=== PATIENT | female | born 1990 | race Caucasian/White ===

== ENCOUNTER 2018-10-14 13:17 | Emergency (ER) | payer OTHER ==
[2018-10-14] MEDS ORDERED: Albuterol/Ipratropium 3.0-0.5 MG/3 ML Neb Soln NEB ONE (14:41)
--- NOTE | 2018-10-14 14:41 | EDM.PDOC ---
ED HPI GENERAL MEDICAL PROBLEM - General Chief Complaint: Respiratory Problem Stated Complaint: COUGH-RESPIRATORY ISSUES Time Seen by Provider: 10/14/18 13:20 Source of Information: Reports: Patient History Limitations: Reports: No Limitations - History of Present Illness INITIAL COMMENTS - FREE TEXT/NARRATIVE: 28 yo F comes in today with a cough that started 2 days ago. She was seen in clinic and started on Augmentin. She states is started when she stayed at a friend's house that has a cat, which she is allergic to. She had a runny nose with clear rhinorrhea that then turned into sinus congestion and now chest congestion. She states her cough is non productive, but she does feel there is some congestion stuck in her lungs. She has had bronchitis in the past and feels that these were the same symptoms. She also c/o of some internal "ear drainage" that is chronic for her, runny nose, "nasty taste" in her mouth, orthopnea, "tight" chest, and insomnia. She denies F/C, vomiting, diarrhea, chest pain or other symptoms at this time. She does have a humidifier at home which has helped along with hot showers. She did not have her flu shot. No known sick contacts. She is not a smoker. - Related Data Allergies Allergy/AdvReac Type Severity Reaction Status Date / Time acetaminophen [From [place]] Allergy Rash Verified 10/14/18 13:27 hydrocodone [From [place]] Allergy Rash Verified 10/14/18 13:27 oral steroids. Allergy Other Uncoded 10/14/18 13:27 Home Meds: Home Meds Albuterol Sulfate [Proair Hfa] 8.5 gm IH BID PRN #1 [id number].[email or web address] 10/14/18 [Rx] Amoxicillin/Clavulanate K [Augmentin 875-125 MG] 1 tab PO BID 10/14/18 [History] Depo Shot. 1 injection INJECT ASDIRECTED 10/14/18 [History] Topiramate [Topamax] 100 mg PO BID 10/14/18 [History] Past Medical History Musculoskeletal History: Reports: Other (See Below) Other Musculoskeletal History: arthritis in back Neurological History: Reports: Other (See Below) Other Neuro History: pseudotumor cerebri, papilledema - Past Surgical History HEENT Surgical History: Reports: Oral Surgery Social & Family History - Tobacco Use Smoking Status *Q: Never Smoker Second Hand Smoke Exposure: No - Caffeine Use Caffeine Use: Reports: Coffee - Recreational Drug Use Recreational Drug Use: No ED ROS GENERAL - Review of Systems Review Of Systems: ROS reveals no pertinent complaints other than HPI. ED EXAM, GENERAL - Physical Exam Exam: See Below Exam Limited By: No Limitations General Appearance: Alert Eye Exam: Bilateral Eye: EOMI, Normal Inspection, PERRL Ears: Normal External Exam, Normal Canal, Hearing Grossly Normal, Normal TMs Ear Exam: Bilateral Ear: Auricle Normal, Canal Normal, TM normal Nose: Normal Mucosa, Clear Rhinorrhea. No: Nasal Tenderness Throat/Mouth: Normal Inspection, Normal Lips, Normal Teeth, Normal Gums, Normal Oropharynx, Normal Voice, No Airway Compromise Head: Atraumatic, Normocephalic Neck: Normal Inspection, Supple, Non-Tender, Full Range of Motion Respiratory/Chest: No Respiratory Distress, Lungs Clear, Normal Breath Sounds, No Accessory Muscle Use, Chest Non-Tender Cardiovascular: Normal Peripheral Pulses, Regular Rate, Rhythm, No Edema, No Gallop, No JVD, No Murmur, No Rub GI/Abdominal: Normal Bowel Sounds, Soft, Non-Tender, No Organomegaly, No Distention, No Abnormal Bruit, No Mass Back Exam: Normal Inspection Extremities: Normal Inspection, Normal Range of Motion, Non-Tender, Normal Capillary Refill, No Pedal Edema Skin Exam: Warm, Dry, Intact, Normal Color, No Rash Course - Vital Signs Last Recorded V/S: Last Vital Signs Temp 98 F 10/14/18 13:25 Pulse 90 10/14/18 13:25 Resp 16 10/14/18 13:25 BP 125/77 10/14/18 13:25 Pulse Ox 99 10/14/18 13:25 - Orders/Labs/Meds Orders: Active Orders 24 hr Category Date Time Status EKG Documentation Completion [RC] ASDIRECTED Care 10/14/18 14:38 Active RT Aerosol Therapy [RC] ASDIRECTED Care 10/14/18 14:41 Active EKG 12 Lead [EK] Stat Ther 10/14/18 14:38 Ordered Labs: Laboratory Tests 10/14/18 10/14/18 Range/Units 14:59 14:59 WBC 8.58 (3.98-10.04) K/mm3 RBC 5.07 (3.98-5.22) M/mm3 Hgb 13.6 (11.2-15.7) gm/L Hct 42.1 (34.1-44.9) % MCV 83.0 (79.4-94.8) fl MCH 26.8 (25.6-32.2) pg MCHC 32.3 (32.2-35.5) g/dl RDW Std Deviation 41.8 (36.4-46.3) fL Plt Count 244 (182-369) K/mm3 MPV 10.0 (9.4-12.3) fl Neut % (Auto) 67.0 (34.0-71.1) % Lymph % (Auto) 22.1 (19.3-51.7) % [place] % (Auto) 6.9 (4.7-12.5) % Eos % (Auto) 3.4 (0.7-5.8) Baso % (Auto) 0.5 (0.1-1.2) % Neut # (Auto) 5.75 (1.56-6.13) K/mm3 Lymph # (Auto) 1.90 (1.18-3.74) K/mm3 [place] # (Auto) 0.59 H (0.24-0.36) K/mm3 Eos # (Auto) 0.29 (0.04-0.36) K/mm3 Baso # (Auto) 0.04 (0.01-0.08) K/mm3 Sodium 144 (136-145) mEq/L Potassium 3.3 L (3.5-5.1) mEq/L Chloride 111 H (98-107) mEq/L Carbon Dioxide 20 L (21-32) mEq/L Anion Gap 16.3 H (5-15) BUN 9 (7-18) mg/dL Creatinine 0.7 (0.55-1.02) mg/dL Est Cr Clr Drug Dosing 105.17 mL/min Estimated GFR (MDRD) > 60 (>60) mL/min BUN/Creatinine Ratio 12.9 L (14-18) Glucose 92 (74-106) mg/dL Calcium 8.9 (8.5-10.1) mg/dL Total Bilirubin 0.2 (0.2-1.0) mg/dL AST 12 L (15-37) U/L ALT 27 (14-59) U/L Alkaline Phosphatase 93 (46-116) U/L C-Reactive Protein 0.3 (<1.0) mg/dL Total Protein 7.6 (6.4-8.2) g/dl Albumin 3.9 (3.4-5.0) g/dl Globulin 3.7 gm/dL Albumin/Globulin Ratio 1.1 (1-2) Meds: Medications Discontinued Medications Generic Name Dose Route Start Last Admin Trade Name Freq PRN Reason Stop Dose Admin Albuterol/Ipratropium 3 ml 10/14/18 14:41 10/14/18 15:15 Duoneb 3.0-0.5 Mg/3 Ml NEB 10/14/18 14:42 3 ml ONETIME ONE Administration Sodium Chloride 1,000 mls @ 999 mls/hr 10/14/18 16:00 Normal Saline IV ASDIRECTED JAZZ Potassium Chloride 10 meq/ 100 mls @ 100 mls/hr 10/14/18 15:56 Premix IV 10/14/18 16:55 ONETIME ONE Potassium Chloride 40 meq 10/14/18 16:04 10/14/18 16:16 Klor-Con M20 PO 10/14/18 16:05 40 meq ONETIME ONE Administration - Re-Assessments/Exams Free Text/Narrative Re-Assessment/Exam: 10/14/18 15:58 I ordered CBC, CMP, CRP, Influenza, CXR, EKG EKG reviewed by myself and Dr. Dillon- WNL. CBC, CRP WNL. CMP shows low potassium at 3.3- will replace. AGap elevated 16.3 will start IVF NS. Influenza negative. CXR reviewed by myself and Dr. Dillon and shows Bronchitis. Departure - Departure Time of Disposition: 16:01 Disposition: Home, Self-Care 01 Condition: Good Clinical Impression: Bronchitis - Discharge Information *PRESCRIPTION DRUG MONITORING PROGRAM REVIEWED*: Not Applicable *COPY OF PRESCRIPTION DRUG MONITORING REPORT IN PATIENT KODY: Not Applicable Prescriptions: Albuterol Sulfate [Proair Hfa] 8.5 gm IH BID PRN #1 hfa.aer.ad PRN Reason: Wheezing Instructions: Acute Bronchitis, Adult, [id number] Referrals: Pau Mcmullen PA-C [Primary Care Provider] - Forms: ED Department Discharge Additional Instructions: You were seen in the ED today for Bronchitis. CXR did show Bronchitis at this time. The rest of your workup was benign, but did show some dehydration and low potassium, therefore you were given potassium while here. Recommend fluids such as water, gatorade, pedialyte. It is recommended you continue the Augmentin you were started on at clinic and try [id number] decongestants such as Sudafed for congestion/sinus. Will send home with Albuterol inhaler, use as needed as rescue inhaler. Please follow up with primary care doctor. Please return to ED if new or worsening symptoms. - My Orders Last 24 Hours: My Active Orders 10/14/18 14:38 EKG Documentation Completion [RC] ASDIRECTED EKG 12 Lead [EK] Stat 10/14/18 14:41 RT Aerosol Therapy [RC] ASDIRECTED - Assessment/Plan Last 24 Hours: My Active Orders 10/14/18 14:38 EKG Documentation Completion [RC] ASDIRECTED EKG 12 Lead [EK] Stat 10/14/18 14:41 RT Aerosol Therapy [RC] ASDIRECTED
--- NOTE | 2018-10-14 15:16 | CR ---
Chest: Portable view of the chest was obtained. Comparison: No prior chest x-ray. Heart size and mediastinum are normal. Lungs are clear. Bony structures are grossly intact. Impression: 1. Nothing acute is seen on portable chest x-ray. Diagnostic code #1
[2018-10-14] MEDS ORDERED: Potassium Chloride 10 MEQ in Premix Bag 1 BAG IV ONE (15:56)
[2018-10-14] MEDS ORDERED: Sodium Chloride 0.9% 1,000 ML IV SCH (16:00)
[2018-10-14] MEDS ORDERED: Potassium Chloride 20 MEQ Tab.ER PO ONE (16:04)
== END 2018-10-14 16:19 | disposition home or self-care (01) ==
LOC: JD.ED 13:17
DX: J40 Bronchitis, not specified as acute or chronic (principal); Z88.8 Allergy status to other drugs, medicaments and biological substances; Z79.899 Other long term (current) drug therapy
CPT/HCPCS: 36415; 71045; 80053; 85025; 86140; 87804; 93005; 94640; 99284; A9270; 93010; J7620-GY

== ENCOUNTER 2019-05-05 08:27 | Emergency (ER) | payer BC, OTHER ==
[2019-05-05] MEDS ORDERED: Sodium Chloride 0.9% 10 ML Syringe FLUSH PRN (08:53)
[2019-05-05] MEDS ORDERED: Prochlorperazine 10 MG/2 ML SDV IVPUSH ONE (08:53)
[2019-05-05] MEDS ORDERED: diphenhydrAMINE 50 MG/ML SDV IVPUSH ONE (08:54)
[2019-05-05] MEDS ORDERED: Ketorolac 30 MG/ML SDV IVPUSH ONE (08:54)
--- NOTE | 2019-05-05 09:23 | EDM.PDOC ---
ED HPI GENERAL MEDICAL PROBLEM - General Chief Complaint: Headache Stated Complaint: MIGRAINE X 5 DAYS Time Seen by Provider: 05/05/19 08:50 Source of Information: Reports: Patient History Limitations: Reports: No Limitations - History of Present Illness INITIAL COMMENTS - FREE TEXT/NARRATIVE: The patient presents with a migraine. This has been going on for about 5 days. The headache is on the right side. She has no numbness or weakness. She has a history of migraines. She has congestion and a slight cough. She has allergies and she is allergic to cats. She recently purchased some cats for her boyfriend. She has no vision changes. She does see a neurologist for the migraines. She tried her usual regimen but it did not help. Onset: Gradual Duration: Day(s): (5) Location: Reports: Head Quality: Reports: Sharp Severity: Severe Improves with: Reports: None Worsens with: Reports: None Associated Symptoms: Reports: Headaches. Denies: Chest Pain, Cough, Fever/ Chills, Nausea/Vomiting, Shortness of Breath Right Headache Pain Score (Numeric/FACES): 8 - Related Data Allergies Allergy/AdvReac Type Severity Reaction Status Date / Time acetaminophen [From [place]] Allergy Rash Verified 05/05/19 08:33 hydrocodone [From [place]] Allergy Rash Verified 05/05/19 08:33 oral steroids. Allergy Other Uncoded 05/05/19 08:33 Home Meds: Home Meds Topiramate [Topamax] 100 mg PO BID 10/14/18 [History] Albuterol Sulfate [Proair Hfa] 1 - 2 puff IH Q4H PRN 05/05/19 [History] Rizatriptan Benzoate [Rizatriptan] 10 mg PO Q2H PRN 05/05/19 [History] medroxyPROGESTERone Acetate [Depo-Provera] 150 mg IM ASDIRECTED 05/05/19 [ History] Past Medical History HEENT History: Reports: Impaired Vision, Sinusitis Other HEENT History: wears eyeglasses. Respiratory History: Reports: Asthma, Bronchitis, Recurrent, Other (See Below) Other Respiratory History: allergies. Gastrointestinal History: Reports: GERD Genitourinary History: Reports: UTI, Recurrent Musculoskeletal History: Reports: Other (See Below) Other Musculoskeletal History: arthritis in back Neurological History: Reports: Other (See Below) Other Neuro History: pseudotumor cerebri, papilledema Dermatologic History: Reports: Other (See Below) Other Dermatologic History: acne. - Past Surgical History HEENT Surgical History: Reports: Oral Surgery Other HEENT Surgeries/Procedures: wisdom teeth and molar removed. Social & Family History - Tobacco Use Smoking Status *Q: Never Smoker Second Hand Smoke Exposure: No - Caffeine Use Caffeine Use: Reports: None - Recreational Drug Use Recreational Drug Use: No ED ROS GENERAL - Review of Systems Review Of Systems: See Below Constitutional: Reports: No Symptoms HEENT: Reports: No Symptoms Respiratory: Reports: No Symptoms Cardiovascular: Reports: No Symptoms Endocrine: Reports: No Symptoms GI/Abdominal: Reports: No Symptoms : Reports: No Symptoms Musculoskeletal: Reports: No Symptoms Skin: Reports: No Symptoms Neurological: Reports: Headache - Physical Exam Exam: See Below Exam Limited By: No Limitations General Appearance: Alert, No Apparent Distress Ears: Normal External Exam Nose: Normal Inspection Head Exam: Atraumatic, Normocephalic Neck: Normal Inspection Respiratory/Chest: No Respiratory Distress, Lungs Clear, Normal Breath Sounds Cardiovascular: Regular Rate, Rhythm, No Edema, No Murmur GI/Abdominal: Soft, Non-Tender, No Organomegaly, No Mass Neuro Exam (Abbreviated): Alert, Oriented, No Motor/Sensory Deficits Course - Vital Signs Last Recorded V/S: Last Vital Signs Temp 98.2 F 05/05/19 08:35 Pulse 101 H 05/05/19 08:35 Resp 16 05/05/19 08:35 BP 106/69 05/05/19 08:35 Pulse Ox 99 05/05/19 08:35 - Orders/Labs/Meds Orders: Active Orders 24 hr Category Date Time Status Peripheral IV Care [RC] . DIRECTED Care 05/05/19 08:53 Active Sodium Chloride 0.9% [Saline Flush] Med 05/05/19 08:53 Active 10 ml FLUSH ASDIRECTED PRN Peripheral IV Insertion Adult [OM.PC] Routine Oth 05/05/19 08:53 Ordered Medication Orders Sodium Chloride (Saline Flush) 10 ml FLUSH ASDIRECTED PRN PRN Reason: Keep Vein Open Last Admin: 05/05/19 09:00 Dose: 10 ml Meds: Medications Generic Name Dose Route Start Last Admin Trade Name Freq PRN Reason Stop Dose Admin Sodium Chloride 10 ml 05/05/19 08:53 05/05/19 09:00 Saline Flush FLUSH 10 ml ASDIRECTED PRN Administration Keep Vein Open Discontinued Medications Generic Name Dose Route Start Last Admin Trade Name Sydnee PRN Reason Stop Dose Admin Diphenhydramine HCl 50 mg 05/05/19 08:54 05/05/19 09:04 Benadryl IVPUSH 05/05/19 08:55 50 mg ONETIME ONE Administration Ketorolac Tromethamine 30 mg 05/05/19 08:54 05/05/19 09:08 Toradol IVPUSH 05/05/19 08:55 30 mg ONETIME ONE Administration Prochlorperazine Edisylate 10 mg 05/05/19 08:53 05/05/19 09:06 Compazine IVPUSH 05/05/19 08:54 10 mg ONETIME ONE Administration - Re-Assessments/Exams Free Text/Narrative Re-Assessment/Exam: 05/05/19 09:22 I ordered an IV saline lock, compazine 10mg IV, toradol 30mg IV, and benadryl 50mg IV. 05/05/19 09:47 She feels better and would like to go home. I will discharge her home. Departure - Departure Time of Disposition: 09:50 Disposition: Home, Self-Care 01 Condition: Good Clinical Impression: Migraine Qualifiers: Migraine type: other Status migrainosus presence: without status migrainosus Intractability: not intractable Qualified Code(s): G43.809 - Other migraine, not intractable, without status migrainosus - Discharge Information *PRESCRIPTION DRUG MONITORING PROGRAM REVIEWED*: No *COPY OF PRESCRIPTION DRUG MONITORING REPORT IN PATIENT KODY: No Referrals: Pau Mcmullen PA-C [Primary Care Provider] - Forms: ED Department Discharge Additional Instructions: Go home and rest. Keep taking the claritin and benadryl as needed for the allergies. Talk to your doctor about allergy shots if you are interested. - My Orders Last 24 Hours: My Active Orders 05/05/19 08:53 Peripheral IV Care [RC] . DIRECTED Sodium Chloride 0.9% [Saline Flush] 10 ml FLUSH ASDIRECTED PRN Peripheral IV Insertion Adult [OM.PC] Routine - Assessment/Plan Last 24 Hours: My Active Orders 05/05/19 08:53 Peripheral IV Care [RC] . DIRECTED Sodium Chloride 0.9% [Saline Flush] 10 ml FLUSH ASDIRECTED PRN Peripheral IV Insertion Adult [OM.PC] Routine
== END 2019-05-05 09:55 | disposition home or self-care (01) ==
LOC: JD.ED 08:27
DX: G43.809 Other migraine, not intractable, without status migrainosus (principal); Z98.890 Other specified postprocedural states; Z88.5 Allergy status to narcotic agent; Z91.09 Other allergy status, other than to drugs and biological substances
CPT/HCPCS: 96374; 96375; 99283; J0780; J1200; J1885; 99284

== ENCOUNTER 2019-05-25 13:10 | Emergency (ER) | payer BC ==
[2019-05-25] MEDS ORDERED: Ketorolac 10 MG Tab PO ONE (13:40)
--- NOTE | 2019-05-25 13:45 | EDM.PDOC ---
ED HPI GENERAL MEDICAL PROBLEM - General Chief Complaint: Abdominal Pain Stated Complaint: L SIDE ABD PAIN Time Seen by Provider: 05/25/19 13:40 Source of Information: Reports: Patient History Limitations: Reports: No Limitations - History of Present Illness INITIAL COMMENTS - FREE TEXT/NARRATIVE: 28-year-old female presents to the ED with diffuse pain up underneath her left rib cage. She states does not radiate into her back. It is made worse by deep breathing. Patient has a history of asthma and feels she is catching a cold and aggravating her asthma symptoms. However the pain came on while she was at work about an hour and half ago and has not let up. Pain is constant but made worse by breathing. She did have a bowel movement earlier this morning with no problem. Particularly no diarrhea no bleeding. She doesn't feel like she has a fever. Onset: Today, Sudden Onset Date: 05/25/19 Onset Time: 13:00 Duration: Minutes:, Getting Worse Location: Reports: Abdomen Quality: Reports: Ache, Sharp, Stabbing Severity: Moderate (Pleuritic component to the pain 7 out of 10.) Improves with: Reports: Rest Worsens with: Reports: Movement Context: Denies: Activity, Exercise (Certain movements and deep breathing make it worse.), Lifting, Sick Contact, Trauma, Other Associated Symptoms: Reports: Chest Pain, Shortness of Breath. Denies: No Other Symptoms, Confusion (Underneath her left breast.), Cough, cough w sputum, Diaphoresis, Fever/Chills, Headaches, Loss of Appetite, Malaise, Nausea/Vomiting , Rash, Seizure, Syncope, Weakness Treatments PLATFORM SUPERVISOR: Reports: Other (see below) Other Treatments PLATFORM SUPERVISOR: none Left Upper Abdomen Pain Score (Numeric/FACES): 8 - Related Data Allergies Allergy/AdvReac Type Severity Reaction Status Date / Time acetaminophen [From [place]] Allergy Rash Verified 05/05/19 08:33 hydrocodone [From [place]] Allergy Rash Verified 05/05/19 08:33 oral steroids. Allergy Other Uncoded 05/05/19 08:33 Home Meds: Home Meds Topiramate [Topamax] 100 mg PO BID 10/14/18 [History] Albuterol Sulfate [Proair Hfa] 1 - 2 puff IH Q4H PRN 05/05/19 [History] Rizatriptan Benzoate [Rizatriptan] 10 mg PO Q2H PRN 05/05/19 [History] medroxyPROGESTERone Acetate [Depo-Provera] 150 mg IM ASDIRECTED 05/05/19 [ History] Past Medical History HEENT History: Reports: Impaired Vision, Sinusitis Other HEENT History: wears eyeglasses. Respiratory History: Reports: Asthma, Bronchitis, Recurrent, Other (See Below) Other Respiratory History: allergies. Gastrointestinal History: Reports: GERD Genitourinary History: Reports: UTI, Recurrent Musculoskeletal History: Reports: Other (See Below) Other Musculoskeletal History: arthritis in back Neurological History: Reports: Other (See Below) Other Neuro History: pseudotumor cerebri, papilledema Dermatologic History: Reports: Other (See Below) Other Dermatologic History: acne. - Past Surgical History HEENT Surgical History: Reports: Oral Surgery Other HEENT Surgeries/Procedures: wisdom teeth and molar removed. Social & Family History - Tobacco Use Smoking Status *Q: Never Smoker - Caffeine Use Caffeine Use: Reports: None - Recreational Drug Use Recreational Drug Use: No - Living Situation & Occupation Living situation: Reports: Single Occupation: Employed ED ROS GENERAL - Review of Systems Review Of Systems: See Below Constitutional: Reports: Decreased Appetite. Denies: Fever, Chills, Malaise, Weakness, Fatigue, Weight Loss HEENT: Reports: No Symptoms Respiratory: Reports: Shortness of Breath, Wheezing, Pleuritic Chest Pain. Denies: Cough (Left anterior lower chest), Sputum, Hemoptysis Cardiovascular: Reports: No Symptoms. Denies: Chest Pain, Blood Pressure Problem, Claudication, Dyspnea on Exertion, Edema, Lightheadedness, Orthopnea Endocrine: Reports: No Symptoms GI/Abdominal: Reports: Abdominal Pain (Left upper abdominal pain underneath her left costal margin that came on about an hour ago.) : Reports: No Symptoms Musculoskeletal: Reports: No Symptoms Skin: Reports: No Symptoms Neurological: Reports: No Symptoms Psychiatric: Reports: No Symptoms Hematologic/Lymphatic: Reports: No Symptoms Immunologic: Reports: No Symptoms ED EXAM, GI/ABD - Physical Exam Exam: See Below Exam Limited By: No Limitations General Appearance: Alert, WD/WN, Mild Distress, Other (Vital signs are all normal with sats of 96% on room air. Respiratory is 20.) Throat/Mouth: Normal Inspection, Normal Lips, Normal Teeth, Normal Oropharynx Head: Atraumatic, Normocephalic Neck: Normal Inspection, Supple, Non-Tender, Full Range of Motion Respiratory/Chest: No Accessory Muscle Use, Respiratory Distress, Wheezing (Few wheezes from both posterior lung bases.) Cardiovascular: Normal Peripheral Pulses, Regular Rate, Rhythm, No Edema, No Gallop, No Murmur, No Rub GI/Abdominal Exam: Soft, Non-Tender, No Organomegaly, No Abnormal Bruit, Tender , Abnormal Bowel Sounds (Mildly hyperactive bowel sounds all 4 quadrants.), Other. No: No Mass, Pelvis Stable, Distended, Guarding (Mildly tender left upper quadrant area with no rebound or guarding.), Rigid, Rebound Back Exam: Normal Inspection, Full Range of Motion. No: CVA Tenderness (L), CVA Tenderness (R) Extremities: Normal Inspection, Normal Range of Motion, Non-Tender, Normal Capillary Refill Neurological: Alert, Oriented, CN II-XII Intact, Normal Cognition Psychiatric: Normal Affect, Normal Mood Skin Exam: Warm, Dry, Intact, Normal Color, No Rash Course - Vital Signs Last Recorded V/S: Last Vital Signs Temp 36.4 C 05/25/19 14:28 Pulse 97 05/25/19 14:28 Resp 16 05/25/19 14:28 BP 118/73 05/25/19 14:28 Pulse Ox 98 05/25/19 14:28 - Orders/Labs/Meds Meds: Medications Discontinued Medications Generic Name Dose Route Start Last Admin Trade Name Freq PRN Reason Stop Dose Admin Ketorolac Tromethamine 10 mg 05/25/19 13:40 05/25/19 14:09 Toradol PO 05/25/19 13:41 10 mg ONETIME ONE Administration Magnesium Citrate 210 ml 05/25/19 14:17 05/25/19 14:26 Citrate Of Magnesia PO 05/25/19 14:18 210 ml ONETIME ONE Administration - Radiology Interpretation Free Text/Narrative:: 28-year-old female presents to the ED for evaluation of sudden onset of left upper quadrant abdominal pain that is made worse by deep breathing. Patient has a history of asthma and is mildly wheezing from both bases. Sats are normal at 96%. Bowel sounds are quite active in all 4 quadrants. She states her bowel function has been normal. Denies any possibility of . She is mildly tender left upper quadrant area with no rebound or guarding. Plan: 2 views of the chest to be done and one view of the abdomen. Given Toradol 10 mg by mouth for pain relief since she's allergic to hydrocodone and Tylenol. - Re-Assessments/Exams Free Text/Narrative Re-Assessment/Exam: 05/25/19 14:11 two-view chest x-ray completed. Shows a small hiatal hernia but no infiltrate in the lung. The KUB reveals increased stool bolus throughout the entire right hemicolon and portions of the hepatic flexure. No bowel obstruction exists. Mild constipation. Plan patient will be treated with Citroma 7 ounces by mouth mixed with 6 ounces of juice of choice to provide bowel cleanse. Continue her albuterol inhaler as needed for relief of dyspnea and mild wheezing. Note given to excuse her from work today. Departure - Departure Time of Disposition: 14:15 Disposition: Home, Self-Care 01 Condition: Fair Clinical Impression: Constipation by delayed colonic transit Abdominal pain Qualifiers: Abdominal location: left upper quadrant Qualified Code(s): R10.12 - Left upper quadrant pain - Discharge Information *PRESCRIPTION DRUG MONITORING PROGRAM REVIEWED*: Not Applicable *COPY OF PRESCRIPTION DRUG MONITORING REPORT IN PATIENT KODY: Not Applicable Instructions: Abdominal Pain, Adult, [id number] Referrals: Pau Mcmullen PA-C [Primary Care Provider] - Forms: ED Department Discharge, ED Return to Work/School Form Additional Instructions: Evaluation the emergency room today in regards to a left upper quadrant abdominal pain up underneath her rib cage which is worsened by deep breathing. He did have mild wheezing from both lung bases but you have a history of asthma as well. Oxygen saturations are normal. 2 views of the abdomen were obtained and reveal the lungs to be clear. There is evidence of a small hiatal hernia which major stomach likes to herniate slightly upper anterior chest cavity making her more prone to heartburn. Reflux. X-ray of the abdomen shows constipation with right hemicolon and parts of the right upper colon being stool -filled. Suspect cause of your current abdominal pain. There is a large amount of gas or air up underneath her left hemidiaphragm causing left upper quadrant pain. Treatment is bowel cleanse with magnesium citrate. Takes 7 ounces of magnesium citrate with 6 ounces of juice of choice such as Gatorade or Powerade by mouth once. This usually takes 1-2 hours to work and will usually make her bowels work 3 or 4 times. Clear the abdominal pain completely. Return to medical care if not markedly improved after bowel cleanse.
[2019-05-25] MEDS ORDERED: Magnesium Citrate Solution 296 ML Bottle PO ONE (14:17)
--- NOTE | 2019-05-25 14:29 | CR ---
Chest: Two views of the chest were obtained. Comparison: Prior chest x-ray of 10/14/18. Heart size and mediastinum are normal. Lungs are clear. Bony structures are unremarkable. Impression: 1. Nothing acute is seen on two-view chest x-ray. Diagnostic code #1
--- NOTE | 2019-05-25 14:29 | CR ---
Abdomen: Supine view of the abdomen was obtained. Comparison: No prior abdominal x-ray. Bowel gas pattern is normal. Calcifications are seen within the pelvis likely representing phleboliths. Bony structures are unremarkable. No soft tissue abnormality is seen. Impression: 1. Nothing acute is appreciated on supine abdominal x-ray. Diagnostic code #1
== END 2019-05-25 14:30 | disposition home or self-care (01) ==
LOC: JD.ED 13:10
DX: K59.01 Slow transit constipation (principal); R10.12 Left upper quadrant pain; J45.909 Unspecified asthma, uncomplicated; Z88.6 Allergy status to analgesic agent; Z88.5 Allergy status to narcotic agent; Z88.8 Allergy status to other drugs, medicaments and biological substances
CPT/HCPCS: 71046; 74018; 99284; A9270

== ENCOUNTER 2019-08-16 18:32 | Emergency (ER) | payer SELFPAY ==
--- NOTE | 2019-08-16 20:08 | EDM.PDOC ---
ED HPI GENERAL MEDICAL PROBLEM - General Chief Complaint: Back Pain or Injury Stated Complaint: ENT/BACK PAIN Time Seen by Provider: 08/16/19 19:12 Source of Information: Reports: Patient History Limitations: Reports: No Limitations - History of Present Illness INITIAL COMMENTS - FREE TEXT/NARRATIVE: Ms. Victor is a very pleasant 28-year-old woman with a past medical history significant for allergic rhinitis, presumed asthma, untreated GERD, pseudotumor cerebri, and chronic back pain, states that she developed bilateral ear pain, sore throat, and generalized back pain today. She has chronic sinus congestion that is unchanged from her usual. No recent fever or chills, cough, or dyspnea. The patient states that she takes Benadryl on a daily basis to treat her allergic rhinitis. She does not use a nasal steroid spray. Today she added Sudafed and Flexeril, without relief of her symptoms. The patient's PCP is DAYLIN Bennett. Her Neurologist is Dr. Lucio Mehta. The patient states that she has never received an influenza vaccine, and declined an offer for one tonight. Lower Back Pain Score (Numeric/FACES): 10 - Related Data Allergies Allergy/AdvReac Type Severity Reaction Status Date / Time acetaminophen [From [place]] Allergy Rash Verified 08/16/19 18:42 hydrocodone [From [place]] Allergy Rash Verified 08/16/19 18:42 oral steroids. Allergy Other Uncoded 08/16/19 18:42 Home Meds: Home Meds Topiramate [Topamax] 100 mg PO BID 10/14/18 [History] Albuterol Sulfate [Proair Hfa] 1 - 2 puff IH Q4H PRN 05/05/19 [History] Rizatriptan Benzoate [Rizatriptan] 10 mg PO Q2H PRN 05/05/19 [History] medroxyPROGESTERone Acetate [Depo-Provera] 150 mg IM ASDIRECTED 05/05/19 [ History] Past Medical History HEENT History: Reports: Allergic Rhinitis, Impaired Vision Other HEENT History: wears eyeglasses Respiratory History: Reports: Asthma (suspected, not tested) Gastrointestinal History: Reports: GERD (untreated) Neurological History: Reports: Other (See Below) (Pseudotumor cerebri) Endocrine/Metabolic History: Reports: Obesity/BMI 30+ - Past Surgical History HEENT Surgical History: Reports: Oral Surgery (wisdom teeth extraction) Social & Family History - Tobacco Use Smoking Status *Q: Never Smoker Second Hand Smoke Exposure: No - Caffeine Use Caffeine Use: Reports: None - Recreational Drug Use Recreational Drug Use: No - Living Situation & Occupation Living situation: Reports: Single Occupation: Employed ED ROS GENERAL - Review of Systems Review Of Systems: Comprehensive ROS is negative, except as noted in HPI. Musculoskeletal: Reports: Back Pain (chronic) ED EXAM, GENERAL - Physical Exam Exam: See Below Exam Limited By: No Limitations General Appearance: Alert, WD/WN, No Apparent Distress Eye Exam: Bilateral Eye: EOMI, Normal Inspection Ears: Normal External Exam, Normal Canal, Hearing Grossly Normal, Normal TMs Nose: Normal Inspection, No Blood, Other (Bilateral nasal mucosa edema) Throat/Mouth: Normal Inspection, Normal Lips, Normal Teeth, Normal Gums, Normal Oropharynx, Normal Voice, No Airway Compromise Head: Atraumatic, Normocephalic Neck: Normal Inspection, Supple, Non-Tender, Full Range of Motion. No: Lymphadenopathy (L), Lymphadenopathy (R) Respiratory/Chest: No Respiratory Distress, Lungs Clear, Normal Breath Sounds, No Accessory Muscle Use. No: Decreased Breath Sounds, Crackles, Rhonchi, Wheezing, Stridor, Prolonged Expiration Cardiovascular: Normal Peripheral Pulses, Regular Rate, Rhythm, No Edema, No Gallop, No JVD, No Murmur, No Rub Peripheral Pulses: 4+: Radial (L), Radial (R) GI/Abdominal: Normal Bowel Sounds, Soft, Non-Tender, No Organomegaly, No Distention, No Abnormal Bruit, No Mass (Female) Exam: Deferred Rectal (Female) Exam: Deferred Back Exam: Normal Inspection, Full Range of Motion, NT Extremities: Normal Inspection, Normal Range of Motion, No Pedal Edema, Normal Capillary Refill Neurological: Alert, Oriented, Normal Cognition, No Motor/Sensory Deficits Psychiatric: Normal Affect Skin Exam: Warm, Dry, Intact, Normal Color, No Rash Course - Vital Signs Last Recorded V/S: Last Vital Signs Temp 37.0 C 08/16/19 18:39 Pulse 131 H 08/16/19 18:39 Resp 16 08/16/19 18:39 BP 126/76 08/16/19 18:39 Pulse Ox 96 01/05/20 18:39 - Orders/Labs/Meds Orders: Active Orders 24 hr Category Date Time Status CULTURE STREP A CONFIRMATION [RM] Stat Lab 08/16/19 20:00 Results STREP SCRN A RAPID W CULT CONF [] Stat Lab 08/16/19 20:00 Results - Re-Assessments/Exams Free Text/Narrative Re-Assessment/Exam: 08/16/19 20:04 Other than bilateral nasal mucosal edema, the patient's physical exam is benign. She is likely suffering from a viral URI, however, I swabbed the patient 's throat for a rapid strep, and Jillian PATTERSON will obtain an influenza swab. I do not see an indication for any other testing at this time. Without pulmonary function tests, we cannot be certain that the patient has asthma, however, I have asked the respiratory therapist to provide the patient with a peak flow meter and a space chamber, with education on their use. 08/16/19 20:45 Test results discussed with the patient. Both her rapid strep test and influenza swab have returned negative. As above, I suspect that the patient is suffering from a viral URI. I explained to the patient that her symptoms will likely this for about 12 days, with the worst of her symptoms over the first 5- 7 days, then tapering thereafter. I advised her to avoid any [id number] cough or cold remedies, as they have been shown to be of no benefit. The patient has been provided both a peak flow meter and a space chamber by the respiratory therapist. I recommended that the patient use her peak flow meter twice a week, and get familiar with its use and her normal values. I recommended that if she is suffering from shortness of breath and wheezing, with or without a cough, that she check her peak flow meter, and if in the yellow or red zone, that she use her albuterol with the space chamber as often as necessary, but that if she requires its use more often than every 4 hours, that she needs to be seen. I advised her that if she is symptomatic, but that her peak flow is in the green zone, that she not use her albuterol, as her symptoms are not likely due to an asthma exacerbation. Lastly, I will recommend to the patient that, once she is feeling better, that she follow-up with her PCP to arrange for PFTs, to confirm that she has asthma. Departure - Departure Time of Disposition: 20:48 Disposition: Home, Self-Care 01 Condition: Good Clinical Impression: Viral URI - Discharge Information *PRESCRIPTION DRUG MONITORING PROGRAM REVIEWED*: Not Applicable *COPY OF PRESCRIPTION DRUG MONITORING REPORT IN PATIENT KODY: Not Applicable Instructions: Upper Respiratory Infection, Adult, [id number] Referrals: Pau Mcmullen PA-C [Primary Care Provider] - Lucio Mehta MD [Ordering Only Provider] - Forms: ED Department Discharge Additional Instructions: You were seen in the emergency room for ear pain, throat pain, and generalized back pain. Workup in the ER included a rapid strep test and an influenza swab, both of which returned negative. Based on your history, physical exam, and ER tests, you are most likely suffering from a viral URI, also known as a common cold. Unfortunately, there are no treatments for a common cold - it will have to run its course, which typically takes about 12 days. As discussed, we advise that you NOT take any pjet-nbq-[id number] cough or cold remedies, as they have been shown to be of no benefit. You have been provided both a peak flow meter and a space chamber. As discussed, we recommend that you learn to use your peak flow meter, and get to know your normal values. We recommend that you check your peak flow twice a week. If you are having shortness of breath, wheezing, with or without a cough, we recommend that you check your peak flow. If your peak flow is in the yellow or red zone, we recommend that you use your albuterol with the space chamber often enough to get relief, however, if you require albuterol more often than every 4 hours, you need to be seen by a doctor. If you are having shortness of breath, wheezing, with or without a cough, and your peak flow is in the green zone, you should NOT take albuterol, as your symptoms are likely not due to asthma. If you are feeling well but your peak flow is in the yellow or red zone, please contact your PCP, as this is an indication that you may develop an asthma exacerbation within the next 2 weeks. We recommend that you follow-up with your PCP once you are feeling all better, to arrange for pulmonary function tests (PFTs), to confirm that you have asthma. If any other problems, please do not hesitate to return to the ER. Sepsis Event Note - Evaluation Sepsis Screening Result: No Definite Risk - Focused Exam Vital Signs: Vital Signs Temp Pulse Resp BP Pulse Ox 08/16/19 18:39 37.0 C 131 H 16 126/76 96 Date Exam was Performed: 08/16/19 Time Exam was Performed: 21:57 - My Orders Last 24 Hours: My Active Orders 08/16/19 20:00 CULTURE STREP A CONFIRMATION [RM] Stat STREP SCRN A RAPID W CULT CONF [] Stat - Assessment/Plan Last 24 Hours: My Active Orders 08/16/19 20:00 CULTURE STREP A CONFIRMATION [RM] Stat STREP SCRN A RAPID W CULT CONF [] Stat
== END 2019-08-16 21:04 | disposition home or self-care (01) ==
LOC: JD.ED 18:32
DX: J06.9 Acute upper respiratory infection, unspecified (principal); J45.909 Unspecified asthma, uncomplicated; E66.9 Obesity, unspecified; Z88.6 Allergy status to analgesic agent; Z88.5 Allergy status to narcotic agent; Z88.8 Allergy status to other drugs, medicaments and biological substances; Z79.899 Other long term (current) drug therapy; Z68.38 Body mass index [BMI] 38.0-38.9, adult
CPT/HCPCS: 87081; 87430; 87804; 99281; 99283

== ENCOUNTER 2020-10-01 00:49 | Emergency (ER) | payer MEDICAID ==
[2020-10-01] MEDS ORDERED: Sodium Chloride 0.9% 1,000 ML IV ONE (01:19)
[2020-10-01] MEDS ORDERED: Metoclopramide 10 MG/2 ML SDV IVPUSH STA (01:19)
--- NOTE | 2020-10-01 01:23 | EDM.PDOC ---
ED HPI GENERAL MEDICAL PROBLEM - General Chief Complaint: Gastrointestinal Problem Stated Complaint: VOMITING FOR 2 DAYS Time Seen by Provider: 10/01/20 01:02 Source of Information: Reports: Patient, Significant Other (Fianc) History Limitations: Reports: No Limitations - History of Present Illness INITIAL COMMENTS - FREE TEXT/NARRATIVE: Ms. Victor is a pleasant 30-year-old woman with a past medical history significant for pseudotumor cerebri, who now presents to the ED stating that she developed nausea about 1 week ago, then vomiting this past , 09/29/2020. No recent diarrhea. She states that she was started on acetazolamide on 09/08/2020 as a treatment for her pseudotumor cerebri, and she believes that her nausea and vomiting are due to that. She states that she was prescribed Zofran 4 mg yesterday, 09/30/2020, that she took 1 dose around 14:00, and another around 18:30 last night, along with a single dose of OTC Emetrol around 20:00, but that she is still dry heaving. Both the acetazolamide and Zofran were prescribed by her Neuro-[employer] Brakeman. No prior similar symptoms. Here in the ED, the patient is found to be hemodynamically stable, afebrile, saturating 97% on room air. She does not appear to be in any distress. She denies feeling lightheaded, even when upright. Other than her nausea and vomiting, the patient denies having a recent fever, chills, sore throat, ear pain, nasal or sinus congestion, cough, dyspnea, chest pain, palpitations, nausea, vomiting, constipation, diarrhea, abdominal pain, urinary symptoms, recent weight gain or weight loss, recent bloody bowel movements or black bowel movements, recent joint aches, headaches, or rashes. The patient's PCP is DAYLIN Bennett. Her Neurologist is Dr. Lucio Mehta. Her Neuro-[employer] Brakeman is Dr. Fausto Slater, in [place]. She has not received an influenza vaccine this season, and declined an offer to get one here in the ED. - Related Data Allergies Allergy/AdvReac Type Severity Reaction Status Date / Time acetaminophen [From [place]] Allergy Rash Verified 10/01/20 01:08 hydrocodone [From [place]] Allergy Rash Verified 10/01/20 01:08 oral steroids. Allergy Other Uncoded 08/16/19 18:42 Home Meds: Home Meds Topiramate [Topamax] 100 mg PO BID 10/14/18 [History] Albuterol Sulfate [Proair Hfa] 1 - 2 puff IH Q4H PRN 05/05/19 [History] Rizatriptan Benzoate [Rizatriptan] 10 mg PO Q2H PRN 05/05/19 [History] medroxyPROGESTERone Acetate [Depo-Provera] 150 mg IM ASDIRECTED 05/05/19 [H istory] Metoclopramide HCl [Reglan] 1 tab PO Q6H PRN #6 tablet 10/01/20 [Rx] Past Medical History HEENT History: Reports: Allergic Rhinitis, Impaired Vision (wears glasses) Respiratory History: Reports: Asthma (Suspected, not PFT-tested) Gastrointestinal History: Reports: GERD (untreated) Neurological History: Reports: Other (See Below) (Pseudotumor cerebri) Endocrine/Metabolic History: Reports: Obesity/BMI 30+ - Past Surgical History HEENT Surgical History: Reports: Oral Surgery (wisdom teeth extraction) Social & Family History - Tobacco Use Tobacco Use Status *Q: Never Tobacco User - Caffeine Use Caffeine Use: Reports: None - Alcohol Use Alcohol Use History: Yes Alcohol Use Frequency: Socially - Recreational Drug Use Recreational Drug Use: No - Living Situation & Occupation Living situation: Reports: Single, with Significant Other (Fianc) Occupation: Unemployed ED ROS GENERAL - Review of Systems Review Of Systems: Comprehensive ROS is negative, except as noted in HPI. Musculoskeletal: Reports: Back Pain (chronic) ED EXAM, GI/ABD - Physical Exam Exam: See Below Exam Limited By: No Limitations General Appearance: Alert, WD/WN, No Apparent Distress Eyes: Bilateral: Normal Appearance, EOMI Ears: Normal External Exam, Hearing Grossly Normal Nose: Normal Inspection Throat/Mouth: Normal Inspection, Normal Lips, Normal Voice, No Airway Compromise Head: Atraumatic, Normocephalic Neck: Normal Inspection, Full Range of Motion Respiratory/Chest: No Respiratory Distress, Lungs Clear, Normal Breath Sounds, No Accessory Muscle Use Cardiovascular: Normal Peripheral Pulses, Regular Rate, Rhythm, No Edema, No Gallop, No JVD, No Murmur, No Rub GI/Abdominal Exam: Normal Bowel Sounds, Soft, Non-Tender, No Organomegaly, No Distention, No Abnormal Bruit, No Mass Back Exam: Normal Inspection, Full Range of Motion, NT Extremities: Normal Inspection, Normal Range of Motion, No Pedal Edema, Normal Capillary Refill Neurological: Alert, Oriented, Normal Cognition, No Motor/Sensory Deficits Psychiatric: Normal Affect Skin Exam: Warm, Dry, Intact, Normal Color, No Rash Course - Vital Signs Last Recorded V/S: Last Vital Signs Temp 36.6 C 10/01/20 01:06 Pulse 84 10/01/20 01:06 Resp 16 10/01/20 01:06 BP 129/93 H 10/01/20 01:06 Pulse Ox 97 10/01/20 01:06 - Orders/Labs/Meds Labs: Laboratory Tests 10/01/20 10/01/20 Range/Units 01:12 01:12 WBC 9.00 (3.98-10.04) K/mm3 RBC 5.39 H (3.98-5.22) M/mm3 Hgb 14.3 (11.2-15.7) gm/dl Hct 43.1 (34.1-44.9) % MCV 80.0 D (79.4-94.8) fl MCH 26.5 (25.6-32.2) pg MCHC 33.2 (32.2-35.5) g/dl RDW Std Deviation 39.9 (36.4-46.3) fL Plt Count 262 (182-369) K/mm3 MPV 10.3 (9.4-12.3) fl Neutrophils % (Manual) 54 (40-60) % Band Neutrophils % 0 (0-10) % Lymphocytes % (Manual) 33 (20-40) % Atypical Lymphs % 0 % Monocytes % (Manual) 8 (2-10) % Eosinophils % (Manual) 5 (0.7-5.8) % Basophils % (Manual) 0 L (0.1-1.2) Platelet Estimate Adequate RBC Morph Comment Normal Sodium 143 (136-145) mEq/L Potassium 3.1 L (3.5-5.1) mEq/L Chloride 107 (98-107) mEq/L Carbon Dioxide 24 (21-32) mEq/L Anion Gap 15.1 H (5-15) BUN 10 (7-18) mg/dL Creatinine 0.9 (0.55-1.02) mg/dL Est Cr Clr Drug Dosing 3.50 mL/min Estimated GFR (MDRD) > 60 (>60) mL/min BUN/Creatinine Ratio 11.1 L (14-18) Glucose 111 H (74-106) mg/dL Calcium 9.1 (8.5-10.1) mg/dL Magnesium 2.0 (1.8-2.4) mg/dl Total Bilirubin 0.4 (0.2-1.0) mg/dL AST 12 L (15-37) U/L ALT 32 (14-59) U/L Alkaline Phosphatase 130 H (46-116) U/L Total Protein 7.8 (6.4-8.2) g/dl Albumin 3.8 (3.4-5.0) g/dl Globulin 4.0 gm/dL Albumin/Globulin Ratio 1.0 (1-2) Meds: Medications Discontinued Medications Generic Name Dose Route Start Last Admin Trade Name Freq PRN Reason Stop Dose Admin Sodium Chloride 1,000 mls @ 999 mls/hr 10/01/20 01:19 10/01/20 01:40 Normal Saline IV 10/01/20 02:19 999 mls/hr ONETIME ONE Administration Metoclopramide HCl 10 mg 10/01/20 01:19 10/01/20 01:40 Reglan IVPUSH 10/01/20 01:20 10 mg ONETIME STA Administration Potassium Chloride 40 meq 10/01/20 02:20 Klor-Con M20 PO 10/01/20 02:21 ONETIME ONE - Re-Assessments/Exams Free Text/Narrative Re-Assessment/Exam: 10/01/20 01:19 As above, the patient has had nausea for about 1 week, then started vomiting this past . She believes that her symptoms are related to her being started on acetazolamide on 09/08/2020. She took 2 doses of Zofran yesterday, along with 1 dose of [id number] Emetrol, but is still dry heaving. I have ordered several blood tests to make sure that there are no significant fluid or electrolyte shifts that need to be addressed, and in the meantime, the patient will be given a bolus of IV fluid and IV Reglan. 10/01/20 02:18 The patient's CBC is unremarkable. Her CMP is remarkable for hypokalemia of 3.1, and anion gap slightly elevated at 15.1, but with a bicarbonate normal at 24, and slight hyperglycemia of 111, with the remainder of her CMP being unremarkable. Her magnesium level is within normal limits at 2.0. 10/01/20 02:20 Test results discussed with the patient and her fianc. She states that she is feeling much better, and feels that she can probably tolerate an oral dose of KCl. I have ordered 40 mEq. 10/01/20 02:47 The patient's IV fluid has finished infusing. She states that she feels much better. I will discharge her home with a prescription for Reglan 10 mg. Departure - Departure Time of Disposition: 02:47 Disposition: Home, Self-Care 01 Condition: Good Clinical Impression: Nausea & vomiting, Hypokalemia - Discharge Information *PRESCRIPTION DRUG MONITORING PROGRAM REVIEWED*: Not Applicable *COPY OF PRESCRIPTION DRUG MONITORING REPORT IN PATIENT KODY: Not Applicable Referrals: aPu Mcmullen PA-C [Primary Care Provider] - Lucio Mehta MD [Ordering Only Provider] - Fausto Slater MD [Ordering Only Provider] - Forms: ED Department Discharge Additional Instructions: You were seen in the emergency room for 1 week of nausea with vomiting since . Work-up in the ER included several blood tests, which found your potassium level to be low at 3.1. The remainder of your work-up was unremarkable. You were given oral potassium replacement. Your symptoms significantly improved following IV fluid and IV metoclopramide (Reglan). A prescription for metoclopramide has been sent to the [facility], located at [address] [place] [address]. You may take 1 tablet of metoclopramide up to every 6 hours, as needed for nausea/vomiting. If you take metoclopramide, DO NOT also take your previously prescribed Zofran. Stay adequately hydrated. Gatorade or Powerade are best. We recommend that you eat a bland diet, such as rice or oatmeal, for the next few days, until you are feeling better. Chicken noodle soup with saltine crackers is an excellent choice. If any other problems, please do not hesitate to return to the ER. Sepsis Event Note (ED) - Evaluation Sepsis Screening Result: No Definite Risk - Focused Exam Vital Signs: Vital Signs Temp Pulse Resp BP Pulse Ox 10/01/20 01:06 36.6 C 84 16 129/93 H 97
[2020-10-01] MEDS ORDERED: Potassium Chloride 20 MEQ Tab.ER PO ONE (02:20)
== END 2020-10-01 03:18 | disposition home or self-care (01) ==
LOC: JD.ED 00:49
DX: E87.6 Hypokalemia (principal); R11.2 Nausea with vomiting, unspecified; E66.9 Obesity, unspecified; Z88.6 Allergy status to analgesic agent; Z88.5 Allergy status to narcotic agent; Z88.8 Allergy status to other drugs, medicaments and biological substances; Z79.899 Other long term (current) drug therapy
CPT/HCPCS: 36415; 80053; 83735; 85007; 85027; 96374; 99284; A9270; J2765; J7030

== ENCOUNTER 2020-11-21 18:47 | Emergency (ER) | payer MEDICAID ==
--- NOTE | 2020-11-21 19:22 | EDM.PDOC ---
ED HPI GENERAL MEDICAL PROBLEM - General Chief Complaint: Respiratory Problem Stated Complaint: SOB/CONGESTION Time Seen by Provider: 11/21/20 18:59 Source of Information: Reports: Patient History Limitations: Reports: No Limitations - History of Present Illness INITIAL COMMENTS - FREE TEXT/NARRATIVE: Ms. Victor is a pleasant 30-year-old woman who now presents to the ED stating that she developed sinus congestion and pressure, along with a headache and greenish rhinorrhea, yesterday, then developed dyspnea, both at rest and with exertion, along with a nonproductive cough, about 4 to 5 hours ago. No recent wheezing or fever. No other symptoms, such as a sore throat, nausea, vomiting, constipation, diarrhea, urinary symptoms, chest pain, or abdominal pain. The patient states that since yesterday, she has taken Sudafed, DayQuil, NyQuil, and Tylenol. She took an albuterol MDI, using a space chamber, around 17:00 this evening, and an albuterol neb around 18:30, without improvement of her symptoms. Here in the ED, the patient's initial BP is found to be slightly elevated at 133/104, otherwise, she is hemodynamically stable, afebrile, saturating 98% on room air. Prior to yesterday, the patient denies having a recent fever, chills, sore throat, ear pain, nasal or sinus congestion, cough, dyspnea, chest pain, palpitations, nausea, vomiting, constipation, diarrhea, abdominal pain, urinary symptoms, recent weight gain or weight loss, recent bloody bowel movements or black bowel movements, recent joint aches, headaches, or rashes. The patient's PCP is DAYLIN Bennett. Her Neurologist is Dr. Lucio Mehta. Her Neuro-Executive Chairman is Dr. Fausto Slater, in [place]. She did not receive an influenza vaccine this season, and declined an offer to get one here in the ED. Headache Pain Score (Numeric/FACES): 8 - Related Data Allergies Allergy/AdvReac Type Severity Reaction Status Date / Time acetaminophen [From [place]] Allergy Rash Verified 10/01/20 01:08 hydrocodone [From [place]] Allergy Rash Verified 10/01/20 01:08 oral steroids. Allergy Other Uncoded 08/16/19 18:42 Home Meds: Home Meds Albuterol Sulfate [Proair Hfa] 1 - 2 puff IH Q4H PRN 05/05/19 [History] Metoclopramide HCl [Reglan] 1 tab PO Q6H PRN #6 tablet 10/01/20 [Rx] Albuterol [Proventil Neb Soln] 1 applic INH ASDIRECTED 11/21/20 [History] Past Medical History HEENT History: Reports: Allergic Rhinitis, Impaired Vision (wears eyeglasses) Respiratory History: Reports: Asthma (suspected, not PFT tested) Gastrointestinal History: Reports: GERD (untreated) Neurological History: Reports: Other (See Below) (Pseudotumor cerebri) Endocrine/Metabolic History: Reports: Obesity/BMI 30+ - Past Surgical History HEENT Surgical History: Reports: Oral Surgery (dental extractions) Social & Family History - Tobacco Use Tobacco Use Status *Q: Never Tobacco User - Caffeine Use Caffeine Use: Reports: None - Alcohol Use Alcohol Use History: Yes Alcohol Use Frequency: Socially - Recreational Drug Use Recreational Drug Use: No - Living Situation & Occupation Living situation: Reports: Single, with Significant Other (Fianc) Occupation: Unemployed ED ROS GENERAL - Review of Systems Review Of Systems: Comprehensive ROS is negative, except as noted in HPI. Musculoskeletal: Reports: Back Pain (chronic) ED EXAM, GENERAL - Physical Exam Exam: See Below Exam Limited By: No Limitations General Appearance: Alert, WD/WN, No Apparent Distress Eye Exam: Bilateral Eye: EOMI, Normal Inspection Ears: Normal External Exam, Normal Canal, Hearing Grossly Normal, Other (Mild bulge of both TMs with clear fluid. No erythema.) Nose: Normal Inspection, Normal Mucosa, No Blood Throat/Mouth: Normal Inspection, Normal Lips, Normal Teeth, Normal Gums, Normal Oropharynx, Normal Voice, No Airway Compromise Head: Atraumatic, Normocephalic Neck: Normal Inspection, Supple, Non-Tender, Full Range of Motion. No: Lymphadenopathy (L), Lymphadenopathy (R) Respiratory/Chest: No Respiratory Distress, Lungs Clear, Normal Breath Sounds, No Accessory Muscle Use. No: Decreased Breath Sounds, Crackles, Rhonchi, Wheezing, Stridor, Prolonged Expiration Cardiovascular: Normal Peripheral Pulses, Regular Rate, Rhythm, No Gallop, No JVD, No Murmur, No Rub Peripheral Pulses: 3+: Radial (L), Radial (R) GI/Abdominal: Normal Bowel Sounds, Soft, Non-Tender, No Organomegaly, No Distention, No Abnormal Bruit, No Mass Back Exam: Normal Inspection, Full Range of Motion, NT Extremities: Normal Inspection, Normal Range of Motion, No Pedal Edema, Normal Capillary Refill Neurological: Alert, Oriented, Normal Cognition, No Motor/Sensory Deficits Psychiatric: Normal Affect Skin Exam: Warm, Dry, Intact, Normal Color, No Rash Course - Vital Signs Last Recorded V/S: Last Vital Signs Temp 36.7 C 11/21/20 19:07 Pulse 93 11/21/20 19:07 Resp 20 11/21/20 19:07 BP 133/104 H 11/21/20 19:07 Pulse Ox 98 11/21/20 19:07 - Orders/Labs/Meds Labs: Laboratory Tests 11/21/20 Range/Units 19:25 Influenza Type A RNA Negative (NEGATIVE) Influenza Type B RNA Negative (NEGATIVE) SARS-CoV-2 RNA (JOSE) Negative (NEGATIVE) - Re-Assessments/Exams Free Text/Narrative Re-Assessment/Exam: 11/21/20 19:16 As above, the patient developed sinus congestion and rhinorrhea yesterday, then a nonproductive cough with dyspnea both at rest and with exertion about 4 to 5 hours ago. No recent wheezing or fever. Her oxygen saturation is 98% here in the ED. On examination, there appears to be some bulging of both tympanic membranes with clear fluid, otherwise, her exam is completely unremarkable, including that of her lungs, which are clear to auscultation bilaterally with no wheezes or restriction of airflow. I suspect that the patient is suffering from a viral URI, however, I have recommended a chest x-ray, along with a swab to test for the SARS-CoV-2 virus and influenza A + B. Since she has no fever or other systemic symptoms, I do not see an indication for blood work, however, I anticipate that her chest x-ray will be unremarkable, but if abnormalities are found, we may need to discuss blood work. The patient is agreeable with this plan. 11/21/20 20:46 2-view chest radiograph is read by Dr. Martinez as: 1. Nothing acute is seen on 2 view chest x-ray. The patient's swab for the SARS-CoV-2 virus and influenza A + B viruses has returned negative for all. 11/21/20 20:49 Test results discussed with the patient. Her negative work-up today suggests that she has a viral URI. She was texting during my discussion and reported that her boyfriend was telling her that he felt nauseated. I suspect that the patient does not trust the negative COVID test. I explained that no test is 100% accurate, and therefore it is still possible that she has COVID-19, and that she should therefore quarantine. Departure - Departure Time of Disposition: 21:03 Disposition: Home, Self-Care 01 Condition: Good Clinical Impression: Viral URI with cough - Discharge Information *PRESCRIPTION DRUG MONITORING PROGRAM REVIEWED*: Not Applicable *COPY OF PRESCRIPTION DRUG MONITORING REPORT IN PATIENT KODY: Not Applicable Instructions: Viral Respiratory Infection, [id number] Referrals: Pau Mcmullen PA-C [Primary Care Provider] - Lucio Mehta MD [Ordering Only Provider] - Fausto Slater MD [Ordering Only Provider] - Forms: ED Department Discharge Additional Instructions: You were seen in the emergency room after developing sinus congestion and pressure, with green mucus yesterday, followed by shortness of breath, both at rest and with exertion, along with a dry cough this evening. Work-up in the ER included a chest x-ray and a swab for the SARS-CoV-2 virus and influenza A + B viruses. Your entire work-up returned normal. You do not have pneumonia. Your test results indicate that you are not suffering from COVID-19 or influenza. Based on your history, physical examination, and ER tests, you are most likely suffering from a viral URI, also known as a common cold. As discussed, we do not recommend that you take any [id number] cough or cold remedies, as they have been shown to be of no benefit, but do have side effects, such as an upset stomach. You may take rqan-ysk-eguelhz Tylenol or ibuprofen as needed for discomfort. We recommend that you stay adequately hydrated. As discussed, no test is 100% accurate, therefore it is still possible that you have COVID-19 despite your negative test. If that is of concern, we recommend that you remain strictly quarantined for 10 days after the onset of your symptoms, then get retested for COVID-19 at that time. If any other problems, please do not hesitate to return to the ER. Sepsis Event Note (ED) - Evaluation Sepsis Screening Result: No Definite Risk - Focused Exam Vital Signs: Vital Signs Temp Pulse Resp BP Pulse Ox 11/21/20 19:07 36.7 C 93 20 133/104 H 98
--- NOTE | 2020-11-21 20:05 | CR ---
Chest: PA and lateral views of the chest were obtained. Comparison: Prior chest x-ray of 05/25/19. Heart size and mediastinum are normal. Lungs are clear with no acute parenchymal change. Bony structures are unremarkable. Impression: 1. Nothing acute is seen on 2 view chest x-ray. Diagnostic code #1
[2020-11-21 20:11] LABS: CORONAVIRUS COVID-19 NAA NEGATIVE (NEGATIVE)
== END 2020-11-21 21:15 | disposition home or self-care (01) ==
LOC: JD.ED 18:47
DX: J06.9 Acute upper respiratory infection, unspecified (principal); E66.9 Obesity, unspecified; Z68.41 Body mass index [BMI] 40.0-44.9, adult; Z88.6 Allergy status to analgesic agent; Z88.5 Allergy status to narcotic agent; Z88.8 Allergy status to other drugs, medicaments and biological substances; Z79.899 Other long term (current) drug therapy; Z20.822 Contact with and (suspected) exposure to COVID-19
CPT/HCPCS: 0240U; 71046; 99285; 99282

== ENCOUNTER 2020-11-26 11:34 | Emergency (ER) | payer MEDICAID ==
--- NOTE | 2020-11-26 12:01 | EDM.PDOC ---
ED HPI GENERAL MEDICAL PROBLEM - General Chief Complaint: Respiratory Problem Stated Complaint: COLD Time Seen by Provider: 11/26/20 11:39 Source of Information: Reports: Patient, RN Notes Reviewed History Limitations: Reports: No Limitations - History of Present Illness INITIAL COMMENTS - FREE TEXT/NARRATIVE: Patient is a 30-year-old female presenting to the emergency department with complaints of ongoing upper respiratory congestion, postnasal drip, and productive cough. This has been going on for approximately 1 week. She was seen in this emergency department on Saturday diagnosed with a viral upper respiratory infection. She states since that time her symptoms have been worsening. She denies any fever. She has been using [id number] Mucinex, Benadryl, and Sudafed without relief. - Related Data Allergies Allergy/AdvReac Type Severity Reaction Status Date / Time acetaminophen [From [place]] Allergy Rash Verified 11/26/20 11:45 hydrocodone [From [place]] Allergy Rash Verified 11/26/20 11:45 oral steroids. Allergy Other Uncoded 11/26/20 11:45 Home Meds: Home Meds Albuterol Sulfate [Proair Hfa] 1 - 2 puff IH Q4H PRN 05/05/19 [History] Albuterol [Proventil Neb Soln] 1 applic INH ASDIRECTED 11/21/20 [History] Amoxicillin/Clavulanate K [Augmentin 875-125 MG] 1 tab PO BID 7 Days #14 tablet 11/26/20 [Rx] Past Medical History HEENT History: Reports: Allergic Rhinitis, Impaired Vision Other HEENT History: wears eyeglasses Respiratory History: Reports: Asthma, Bronchitis, Recurrent Other Respiratory History: allergies. Gastrointestinal History: Reports: GERD Genitourinary History: Reports: UTI, Recurrent Musculoskeletal History: Reports: Back Pain, Chronic, Other (See Below) Other Musculoskeletal History: arthritis in back Neurological History: Reports: Other (See Below) Other Neuro History: pseudotumor cerebri, papilledema Endocrine/Metabolic History: Reports: Obesity/BMI 30+ Dermatologic History: Reports: Other (See Below) Other Dermatologic History: acne - Infectious Disease History Infectious Disease History: Reports: Novel Coronavirus - Past Surgical History HEENT Surgical History: Reports: Oral Surgery Other HEENT Surgeries/Procedures: wisdom teeth and molar removed. Social & Family History - Tobacco Use Tobacco Use Status *Q: Never Tobacco User Second Hand Smoke Exposure: No - Caffeine Use Caffeine Use: Reports: None - Recreational Drug Use Recreational Drug Use: No - Living Situation & Occupation Living situation: Reports: Single, with Significant Other (Fianc) Occupation: Unemployed ED ROS GENERAL - Review of Systems Review Of Systems: See Below Constitutional: Reports: No Symptoms. Denies: Fever, Chills HEENT: Reports: Rhinitis, Sinus Problem (Pressure). Denies: Ear Pain, Throat Pain Respiratory: Reports: Shortness of Breath, Cough, Sputum Cardiovascular: Reports: No Symptoms Endocrine: Reports: No Symptoms GI/Abdominal: Reports: No Symptoms : Reports: No Symptoms Musculoskeletal: Reports: No Symptoms Skin: Reports: No Symptoms Neurological: Reports: No Symptoms Psychiatric: Reports: No Symptoms Hematologic/Lymphatic: Reports: No Symptoms Immunologic: Reports: No Symptoms ED EXAM, GENERAL - Physical Exam Exam: See Below Exam Limited By: No Limitations General Appearance: Alert, WD/WN, No Apparent Distress Eye Exam: Bilateral Eye: PERRL Ears: Normal External Exam, Normal Canal, Hearing Grossly Normal, Normal TMs Head: Atraumatic, Normocephalic, Sinus Tenderness Neck: Normal Inspection, Supple, Non-Tender, Full Range of Motion Respiratory/Chest: No Respiratory Distress, Lungs Clear, Normal Breath Sounds, No Accessory Muscle Use, Chest Non-Tender Cardiovascular: Normal Peripheral Pulses, Regular Rate, Rhythm, No Edema, No Gallop, No JVD, No Murmur, No Rub Neurological: Alert, Oriented, CN II-XII Intact, Normal Cognition, Normal Gait, Normal Reflexes, No Motor/Sensory Deficits Psychiatric: Normal Affect, Normal Mood Skin Exam: Warm, Dry, Intact, Normal Color, No Rash Course - Vital Signs Last Recorded V/S: Last Vital Signs Temp 97.8 F 11/26/20 11:41 Pulse 95 11/26/20 11:41 Resp 12 11/26/20 11:41 BP 140/101 H 11/26/20 11:41 Pulse Ox 98 11/26/20 11:41 - Orders/Labs/Meds Orders: Active Orders 24 hr Category Date Time Status Chest 2V [CR] Stat Exams 11/26/20 11:52 Taken - Re-Assessments/Exams Free Text/Narrative Re-Assessment/Exam: Patient is a 30-year-old female presenting to the emergency department with complaints of worsening symptoms of nasal congestion with sinus pressure, postnasal drip, and cough. Symptoms have been going on for approximately 1 week. She was seen here last Saturday diagnosed with a viral upper respiratory infection. Lung sounds are clear to auscultation. I suspect that she is suffering from a bacterial sinusitis that has sent in after a viral respiratory infection. I have ordered a chest x-ray to rule out any possible pneumonia. 11/26/20 12:08 Chest x-ray shows no acute abnormalities. I will send a prescription for Augmentin for treatment of bacterial sinusitis. Discharge instructions as documented. Departure - Departure Time of Disposition: 12:09 Disposition: Home, Self-Care 01 Condition: Good Clinical Impression: Sinusitis Qualifiers: Sinusitis location: unspecified location Chronicity: acute Recurrence: not specified as recurrent Qualified Code(s): J01.90 - Acute sinusitis, unspecified - Discharge Information *PRESCRIPTION DRUG MONITORING PROGRAM REVIEWED*: No *COPY OF PRESCRIPTION DRUG MONITORING REPORT IN PATIENT KODY: No Prescriptions: Amoxicillin/Clavulanate K [Augmentin 875-125 MG] 1 tab PO BID 7 Days #14 tablet Instructions: Sinusitis, Adult, [id number] Referrals: Pau Mcmullen PA-C [Primary Care Provider] - Forms: ED Department Discharge Additional Instructions: You were seen in the emergency department today for ongoing and worsening symptoms of nasal congestion, sinus pressure, cough, and postnasal drip. Chest x-ray was completed and was found to be normal. As discussed, you are likely suffering from a bacterial sinusitis. You been started on Augmentin for the treatment of this. Take this medication as prescribed. He may continue to use tojd-jry-ymufric Mucinex and Sudafed as needed, however your symptoms should begin to gradually improve over the next few days. If symptoms fail to improve by Saturday, recommend follow-up in the clinic. Return to ER as needed. Sepsis Event Note (ED) - Evaluation Sepsis Screening Result: No Definite Risk - Focused Exam Vital Signs: Vital Signs Temp Pulse Resp BP Pulse Ox 11/26/20 11:41 97.8 F 95 12 140/101 H 98 - My Orders Last 24 Hours: My Active Orders 11/26/20 11:52 Chest 2V [CR] Stat - Assessment/Plan Last 24 Hours: My Active Orders 11/26/20 11:52 Chest 2V [CR] Stat
--- NOTE | 2020-11-27 09:26 | CR ---
Chest: PA and lateral views of the chest were obtained. Comparison: Prior chest x-ray of 11/21/20. Heart size and mediastinum are normal. Lungs are clear with no acute parenchymal change. No acute osseous abnormality is appreciated. Impression: 1. Nothing acute is appreciated on 2 view chest x-ray. Diagnostic code #1
== END 2020-11-26 12:19 | disposition home or self-care (01) ==
LOC: JD.ED 11:34
DX: J01.90 Acute sinusitis, unspecified (principal); J45.909 Unspecified asthma, uncomplicated; E66.9 Obesity, unspecified; Z68.30 Body mass index [BMI] 30.0-30.9, adult; Z88.8 Allergy status to other drugs, medicaments and biological substances; Z88.5 Allergy status to narcotic agent; Z88.6 Allergy status to analgesic agent
CPT/HCPCS: 71046; 71046-26; 99283; 99283-25

== ENCOUNTER 2021-02-24 05:49 | Emergency (ER) | payer MEDICAID ==
[2021-02-24] MEDS ORDERED: diphenhydrAMINE 50 MG/ML SDV IVPUSH ONE (08:50)
[2021-02-24] MEDS ORDERED: Ketorolac 30 MG/ML SDV IVPUSH ONE (08:50)
[2021-02-24] MEDS ORDERED: Metoclopramide 10 MG/2 ML SDV IVPUSH ONE (08:50)
--- NOTE | 2021-02-24 08:56 | EDM.PDOC ---
ED HPI GENERAL MEDICAL PROBLEM - General Chief Complaint: Headache Stated Complaint: MIGRAINE/CONGESTION Time Seen by Provider: 02/24/21 08:27 Source of Information: Reports: Patient History Limitations: Reports: No Limitations - History of Present Illness INITIAL COMMENTS - FREE TEXT/NARRATIVE: The patient presents with a migraine. She also has a fever, chills, congestion, runny nose and a slight cough. She thinks the cold triggered one of her migraines. She also has a history of pseudotumor cerebri. She has no chest pain, shortness of breath, abdominal pain, nausea, vomiting, numbness or weakness. She did get her COVID 19 vaccination. She has not been around anyone that she knows of with COVID. Onset: Gradual Duration: Week(s): Location: Reports: Head Quality: Reports: Ache Severity: Severe Improves with: Reports: None Worsens with: Reports: None Associated Symptoms: Reports: Cough, Fever/Chills, Headaches. Denies: Chest Pain, Nausea/Vomiting, Shortness of Breath Headache Pain Score (Numeric/FACES): 10 - Related Data Allergies Allergy/AdvReac Type Severity Reaction Status Date / Time acetaminophen [From [place]] Allergy Rash Verified 02/24/21 08:47 hydrocodone [From [place]] Allergy Rash Verified 02/24/21 08:47 oral steroids. Allergy Other Uncoded 11/26/20 11:45 Home Meds: Home Meds Doxycycline [Vibramycin] 100 mg PO BID #20 tab 02/24/21 [Rx] Past Medical History HEENT History: Reports: Allergic Rhinitis, Impaired Vision Other HEENT History: wears eyeglasses Respiratory History: Reports: Asthma, Bronchitis, Recurrent Other Respiratory History: allergies. Gastrointestinal History: Reports: GERD Genitourinary History: Reports: UTI, Recurrent Musculoskeletal History: Reports: Back Pain, Chronic, Other (See Below) Other Musculoskeletal History: arthritis in back Neurological History: Reports: Other (See Below) Other Neuro History: pseudotumor cerebri, papilledema Endocrine/Metabolic History: Reports: Obesity/BMI 30+ Dermatologic History: Reports: Other (See Below) Other Dermatologic History: acne - Infectious Disease History Infectious Disease History: Reports: Novel Coronavirus - Past Surgical History HEENT Surgical History: Reports: Oral Surgery Other HEENT Surgeries/Procedures: wisdom teeth and molar removed. Social & Family History - Tobacco Use Tobacco Use Status *Q: Never Tobacco User - Caffeine Use Caffeine Use: Reports: None - Living Situation & Occupation Living situation: Reports: Single, with Significant Other (Fianc) Occupation: Unemployed ED ROS GENERAL - Review of Systems Review Of Systems: See Below Constitutional: Reports: Fever, Chills HEENT: Reports: Other (congestion and runny nose) Respiratory: Reports: Cough. Denies: Shortness of Breath Cardiovascular: Reports: No Symptoms Endocrine: Reports: No Symptoms GI/Abdominal: Reports: No Symptoms : Reports: No Symptoms - Physical Exam Exam: See Below Exam Limited By: No Limitations General Appearance: Alert, No Apparent Distress Ears: Normal External Exam, Normal Canal, Normal TMs Nose: Normal Inspection Throat/Mouth: Normal Inspection Head Exam: Atraumatic, Normocephalic Neck: Normal Inspection, Supple, Non-Tender Respiratory/Chest: No Respiratory Distress, Lungs Clear, Normal Breath Sounds Cardiovascular: Regular Rate, Rhythm, No Edema, No Murmur GI/Abdominal: Soft, Non-Tender, No Organomegaly, No Mass Neuro Exam (Abbreviated): Alert, Oriented, No Motor/Sensory Deficits Course - Vital Signs Last Recorded V/S: Last Vital Signs Temp 98.1 F 02/24/21 07:00 Pulse 72 02/24/21 07:00 Resp 16 02/24/21 07:00 BP 135/79 02/24/21 07:00 Pulse Ox 98 02/24/21 07:00 - Orders/Labs/Meds Labs: Laboratory Tests 02/24/21 Range/Units 07:45 SARS-CoV-2 RNA (JOSE) Negative (NEGATIVE) Meds: Medications Discontinued Medications Generic Name Dose Route Start Last Admin Trade Name Sydnee PRN Reason Stop Dose Admin Diphenhydramine HCl 50 mg 02/24/21 08:50 02/24/21 07:44 Diphenhydramine 50 Mg/Ml Sdv IVPUSH 02/24/21 08:51 50 mg ONETIME ONE Administration Ketorolac Tromethamine 30 mg 02/24/21 08:50 02/24/21 07:43 Ketorolac 30 Mg/Ml Sdv IVPUSH 02/24/21 08:51 30 mg ONETIME ONE Administration Metoclopramide HCl 10 mg 02/24/21 08:50 02/24/21 07:42 Metoclopramide 10 Mg/2 Ml Sdv IVPUSH 02/24/21 08:51 10 mg ONETIME ONE Administration - Re-Assessments/Exams Free Text/Narrative Re-Assessment/Exam: 02/24/21 08:55 I ordered an IV saline lock, toradol 30mg IV, reglan 10mg IV, benadryl 50mg and COVID 19. The COVID 19 is negative. 02/24/21 08:58 Her headache is better but not gone. She feels she will be okay. It sounds as if she has a sinus infection. I will get her on some doxycycline. Departure - Departure Time of Disposition: 09:05 Disposition: Home, Self-Care 01 Condition: Good Clinical Impression: Migraine Sinusitis Qualifiers: Sinusitis location: unspecified location Chronicity: acute Recurrence: not specified as recurrent Qualified Code(s): J01.90 - Acute sinusitis, unspecified - Discharge Information *PRESCRIPTION DRUG MONITORING PROGRAM REVIEWED*: Not Applicable *COPY OF PRESCRIPTION DRUG MONITORING REPORT IN PATIENT KODY: Not Applicable Prescriptions: Doxycycline [Vibramycin] 100 mg PO BID #20 tab Referrals: Pau Mcmullen PA-C [Primary Care Provider] - 1 Week Forms: ED Department Discharge, ED Return to Work/School Form Additional Instructions: Take the doxycycline 100mg by mouth 2 times per day for 10 days. Drink plenty of fluids. You can take any of the over the counter cold medicines. Go home and rest. Please return if you are worse. Sepsis Event Note (ED) - Evaluation Sepsis Screening Result: No Definite Risk - Focused Exam Vital Signs: Vital Signs Temp Pulse Resp BP Pulse Ox 02/24/21 07:00 98.1 F 72 16 135/79 98
== END 2021-02-24 09:35 | disposition home or self-care (01) ==
LOC: JD.ED 05:49
DX: G43.909 Migraine, unspecified, not intractable, without status migrainosus (principal); J01.90 Acute sinusitis, unspecified; E66.9 Obesity, unspecified; Z68.30 Body mass index [BMI] 30.0-30.9, adult; Z88.5 Allergy status to narcotic agent; Z88.8 Allergy status to other drugs, medicaments and biological substances; Z20.822 Contact with and (suspected) exposure to COVID-19
CPT/HCPCS: 87635; 96374; 96375; 99283; J1200; J1885; J2765; U0002

== ENCOUNTER 2021-09-14 15:22 | Emergency (ER) | payer OTHER, MEDICAID ==
[2021-09-14] MEDS ORDERED: Sodium Chloride 0.9% 10 ML Syringe FLUSH PRN (15:57)
[2021-09-14] MEDS ORDERED: Ondansetron 4 MG/2 ML SDV IVPUSH ONE (15:57)
[2021-09-14] MEDS ORDERED: Ketorolac 30 MG/ML SDV IVPUSH ONE ×2 (15:57→17:06)
[2021-09-14] MEDS ORDERED: Sodium Chloride 0.9% 1,000 ML IV STA (15:57)
[2021-09-14] MEDS ORDERED: HYDROmorphone 0.5 MG/0.5 ML Syringe IVPUSH ONE (15:57)
[2021-09-14] MEDS ORDERED: diphenhydrAMINE 50 MG/ML SDV IVPUSH ONE ×2 (15:58→17:06)
[2021-09-14] MEDS ORDERED: Acetaminophen 325 MG Tab PO ONE (18:06)
== END 2021-09-14 19:54 | disposition home or self-care (01) ==
LOC: JD.ED 15:22
DX: G43.809 Other migraine, not intractable, without status migrainosus (principal); G93.2 Benign intracranial hypertension; E66.9 Obesity, unspecified; Z88.5 Allergy status to narcotic agent; Z88.8 Allergy status to other drugs, medicaments and biological substances; Z68.41 Body mass index [BMI] 40.0-44.9, adult
CPT/HCPCS: 36415; 70450; 80053; 85025; 86140; 96374; 96375; 96376; 99284; A9270; J1170; J1200; J1885; J2405; J7030

== ENCOUNTER 2021-12-29 20:14 | Emergency (ER) | payer OTHER, MEDICAID ==
[2021-12-29] MEDS ORDERED: Sodium Chloride 0.9% 10 ML Syringe FLUSH PRN (20:36)
[2021-12-29] MEDS ORDERED: diphenhydrAMINE 50 MG/ML SDV IVPUSH ONE (20:42)
[2021-12-29] MEDS ORDERED: Sodium Chloride 0.9% 1,000 ML IV STA (20:42)
[2021-12-29] MEDS ORDERED: Metoclopramide 10 MG/2 ML SDV IVPUSH ONE (20:42)
[2021-12-29] MEDS ORDERED: Ketorolac 30 MG/ML SDV IVPUSH ONE (20:43)
[2021-12-29 21:23] LABS: CORONAVIRUS COVID-19 NAA NEGATIVE (NEGATIVE)
== END 2021-12-29 22:01 | disposition home or self-care (01) ==
LOC: JD.ED 20:14
DX: J06.9 Acute upper respiratory infection, unspecified (principal); E66.9 Obesity, unspecified; Z68.41 Body mass index [BMI] 40.0-44.9, adult; Z88.5 Allergy status to narcotic agent; Z88.8 Allergy status to other drugs, medicaments and biological substances; Z20.822 Contact with and (suspected) exposure to COVID-19
CPT/HCPCS: 0240U; 36415; 71045; 80053; 85025; 96374; 96375; 99283; J1200; J1885; J2765; J3490; J7030

== ENCOUNTER 2022-07-05 01:48 | Emergency (ER) | payer OTHER, MEDICAID ==
[2022-07-05] MEDS ORDERED: Ketorolac 60 MG/2 ML SDV IM ONE (02:19)
== END 2022-07-05 03:30 | disposition home or self-care (01) ==
LOC: JD.ED 01:48
DX: R10.2 Pelvic and perineal pain (principal); Z88.6 Allergy status to analgesic agent; Z88.5 Allergy status to narcotic agent
CPT/HCPCS: 81003; 96372; 99284; J1885

== ENCOUNTER 2023-09-23 09:25 | Emergency (ER) | payer SELFPAY ==
[2023-09-23 10:55] LABS: CORONAVIRUS COVID-19 NAA NEGATIVE (NEGATIVE); INFLUENZA A NAA NEGATIVE (NEGATIVE); RESPIRATORY SYNCYTIAL VIR NAA NEGATIVE (NEGATIVE)
== END 2023-09-23 12:40 | disposition home or self-care (01) ==
LOC: JD.ED 09:25
DX: J10.1 Influenza due to other identified influenza virus with other respiratory manifestations (principal); J40 Bronchitis, not specified as acute or chronic; H66.003 Acute suppurative otitis media without spontaneous rupture of ear drum, bilateral; E66.9 Obesity, unspecified; Z86.16 Personal history of COVID-19; Z88.6 Allergy status to analgesic agent; Z88.8 Allergy status to other drugs, medicaments and biological substances; Z88.5 Allergy status to narcotic agent
CPT/HCPCS: 0241U; 71046; 87651; 99285

== ENCOUNTER 2024-01-28 08:21 | Emergency (ER) | payer SELFPAY ==
[2024-01-28] MEDS: Triamcinolone Acetonide 40 MG/ML 1 ML SDV INJECT ONE (09:49)
== END 2024-01-28 10:05 | disposition home or self-care (01) ==
LOC: JD.ED 08:21
DX: J01.30 Acute sphenoidal sinusitis, unspecified (principal); J02.8 Acute pharyngitis due to other specified organisms; J30.2 Other seasonal allergic rhinitis; H65.02 Acute serous otitis media, left ear; Z88.6 Allergy status to analgesic agent; Z88.5 Allergy status to narcotic agent; Z88.8 Allergy status to other drugs, medicaments and biological substances; Z79.899 Other long term (current) drug therapy; Z95.5 Presence of coronary angioplasty implant and graft; Z86.16 Personal history of COVID-19
CPT/HCPCS: 96372; 99283; J3301

== ENCOUNTER 2024-04-20 10:17 | Emergency (ER) | payer BC ==
[2024-04-20 11:38] LABS: CORONAVIRUS COVID-19 NAA NEGATIVE (NEGATIVE); INFLUENZA A NAA NEGATIVE (NEGATIVE); RESPIRATORY SYNCYTIAL VIR NAA NEGATIVE (NEGATIVE)
[2024-04-20 11:50] LABS: BASOPHILS PERCENT AUTO 0.4 % (0.0-1.0); EOSINOPHILS ABSOLUTE AUTO 0.3 K/mm3 (0.0-0.4); EOSINOPHILS PERCENT AUTO 3.1 % (0.0-6.0); HEMATOCRIT 42.8 % (37.0-47.0); HEMOGLOBIN 13.5 gm/dl (12.0-16.0); IMMATURE GRAN ABSOLUTE AUTO 0.02 K/mm3 (0.00-0.05); IMMATURE GRAN PERCENT AUTO 0.2 % (0.0-0.4); LYMPHOCYTES ABSOLUTE AUTO 1.6 K/mm3 (1.0-4.8); LYMPHOCYTES PERCENT AUTO 19.2 % (24.0-44.0); MEAN CORPUSCULAR HEMOGLOBIN 26.8 pg (28.0-32.0); MEAN CORPUSCULAR HGB CONC 31.5 g/dl (32.0-36.0); MEAN CORPUSCULAR VOLUME 85.1 fl (83.0-99.0); MEAN PLATELET VOLUME 9.5 fl (9.4-12.3); MONOCYTES ABSOLUTE AUTO 0.6 K/mm3 (0.0-0.8); MONOCYTES PERCENT AUTO 7.1 % (0.0-8.0); NEUTROPHILS ABSOLUTE AUTO 5.7 K/mm3 (1.8-7.7); PLATELET COUNT,PLT 199 K/mm3 (150-400); RED BLOOD CELL COUNT 5.03 M/mm3 (4.10-5.30); WHITE BLOOD CELL COUNT,WBC 8.08 K/mm3 (3.9-11.3)
[2024-04-20 12:19] LABS: A/G RATIO 0.9 (1-2); ALBUMIN 3.3 g/dl (3.4-5.0); ANION GAP 11.6 (5-15); BILIRUBIN TOTAL 0.3 mg/dL (0.2-1.0); BUN/CREATININE RATIO 13.8 (14-18); CALCIUM 8.6 mg/dL (8.5-10.1); CREATININE 0.8 mg/dL (0.55-1.02); EST CRCL DRUG DOSING (CG) 87.99 mL/min; POTASSIUM,K 3.6 mEq/L (3.5-5.1); PROTEIN TOTAL,TP 6.9 g/dl (6.4-8.2)
== END 2024-04-20 12:45 | disposition home or self-care (01) ==
LOC: JD.ED 10:17
DX: J32.9 Chronic sinusitis, unspecified (principal); B97.89 Other viral agents as the cause of diseases classified elsewhere; E66.9 Obesity, unspecified; Z88.8 Allergy status to other drugs, medicaments and biological substances; Z79.899 Other long term (current) drug therapy; Z86.16 Personal history of COVID-19; Z68.41 Body mass index [BMI] 40.0-44.9, adult
CPT/HCPCS: 0241U; 36415; 80053; 85025; 99284; 99282

== ENCOUNTER 2024-07-06 06:41 | Emergency (ER) | payer BC ==
[2024-07-06] MEDS: Metoclopramide 10 MG/2 ML SDV IVPUSH ONE (07:30)
[2024-07-06] MEDS: fentaNYL 100 MCG/2 ML SDV IVPUSH ONE (07:30)
[2024-07-06] MEDS: Sodium Chloride 0.9% 10 ML Syringe FLUSH PRN ×2 (07:31→08:46)
[2024-07-06] MEDS: Sodium Chloride 0.9% 1,000 ML IV STA (07:31)
[2024-07-06 07:35] LABS: BASOPHILS PERCENT AUTO 0.2 % (0.0-1.0); EOSINOPHILS PERCENT AUTO 0.3 % (0.0-6.0); HEMOGLOBIN 14.1 gm/dl (12.0-16.0); IMMATURE GRAN ABSOLUTE AUTO 0.01 K/mm3 (0.00-0.05); IMMATURE GRAN PERCENT AUTO 0.2 % (0.0-0.4); LYMPHOCYTES ABSOLUTE AUTO 0.4 K/mm3 (1.0-4.8); LYMPHOCYTES PERCENT AUTO 5.5 % (24.0-44.0); MEAN CORPUSCULAR HEMOGLOBIN 26.8 pg (28.0-32.0); MEAN CORPUSCULAR HGB CONC 32.8 g/dl (32.0-36.0); MEAN CORPUSCULAR VOLUME 81.6 fl (83.0-99.0); MEAN PLATELET VOLUME 10.4 fl (9.4-12.3); MONOCYTES ABSOLUTE AUTO 0.3 K/mm3 (0.0-0.8); MONOCYTES PERCENT AUTO 4.6 % (0.0-8.0); NEUTROPHILS ABSOLUTE AUTO 5.7 K/mm3 (1.8-7.7); NEUTROPHILS PERCENT AUTO 89.2 % (41.0-71.0); PLATELET COUNT,PLT 192 K/mm3 (150-400); RED BLOOD CELL COUNT 5.27 M/mm3 (4.10-5.30); WHITE BLOOD CELL COUNT,WBC 6.34 K/mm3 (3.9-11.3)
[2024-07-06 07:59] LABS: A/G RATIO 0.9 (1-2); ALBUMIN 3.4 g/dl (3.4-5.0); ANION GAP 13.2 (5-15); BILIRUBIN TOTAL 0.5 mg/dL (0.2-1.0); BUN/CREATININE RATIO 11.1 (14-18); CALCIUM 8.4 mg/dL (8.5-10.1); CREATININE 0.9 mg/dL (0.55-1.02); EST CRCL DRUG DOSING (CG) 78.21 mL/min; POTASSIUM,K 3.2 mEq/L (3.5-5.1); PROTEIN TOTAL,TP 7.1 g/dl (6.4-8.2)
[2024-07-06] MEDS: Iopamidol 612 MG/ML 100 ML Bottle IVPUSH ONE (08:47)
[2024-07-06] MEDS: Iopamidol 612 MG/ML 30 ML SDV IVPUSH ONE (08:49)
== END 2024-07-06 09:45 | disposition home or self-care (01) ==
LOC: JD.ED 06:41
DX: A08.4 Viral intestinal infection, unspecified (principal); E66.9 Obesity, unspecified; Z86.16 Personal history of COVID-19; Z79.85 Long-term (current) use of injectable non-insulin antidiabetic drugs; Z88.5 Allergy status to narcotic agent; Z88.6 Allergy status to analgesic agent; Z88.8 Allergy status to other drugs, medicaments and biological substances; Z68.41 Body mass index [BMI] 40.0-44.9, adult
CPT/HCPCS: 36415; 74177; 80053; 83690; 84703; 85025; 96361; 96374; 96375; 99284; J2765; J3010; J3490; J7030; Q9967

== ENCOUNTER 2024-07-28 05:31 | Emergency (ER) | payer BC ==
[2024-07-28] MEDS: Penicillin G Benzathine 1,200,000 Units/2 ML Syringe IM ONE (06:46)
== END 2024-07-28 06:53 | disposition home or self-care (01) ==
LOC: JD.ED 05:31
DX: J02.0 Streptococcal pharyngitis (principal); E66.9 Obesity, unspecified; Z79.899 Other long term (current) drug therapy; Z88.8 Allergy status to other drugs, medicaments and biological substances; Z88.6 Allergy status to analgesic agent; Z88.5 Allergy status to narcotic agent; Z68.42 Body mass index [BMI] 45.0-49.9, adult
CPT/HCPCS: 87428; 87651; 96372; 99284; J0561; 99283

== ENCOUNTER 2025-03-02 12:01 | Emergency (ER) | payer SELFPAY ==
[2025-03-02] MEDS ORDERED: Sodium Chloride 0.9% 10 ML Syringe FLUSH PRN (12:39)
[2025-03-02] MEDS: diphenhydrAMINE 50 MG/ML SDV IVPUSH ONE (13:04)
[2025-03-02] MEDS: Ketorolac 30 MG/ML SDV IVPUSH ONE (13:04)
[2025-03-02] MEDS: Ondansetron 4 MG/2 ML SDV IVPUSH ONE (13:04)
[2025-03-02 13:11] LABS: BASOPHILS ABSOLUTE AUTO 0.0 K/mm3 (0.0-0.2); BASOPHILS PERCENT AUTO 0.2 % (0.0-1.0); EOSINOPHILS ABSOLUTE AUTO 0.1 K/mm3 (0.0-0.4); EOSINOPHILS PERCENT AUTO 0.7 % (0.0-6.0); IMMATURE GRAN ABSOLUTE AUTO 0.04 K/mm3 (0.00-0.05); IMMATURE GRAN PERCENT AUTO 0.3 % (0.0-0.4); LYMPHOCYTES ABSOLUTE AUTO 1.3 K/mm3 (1.0-4.8); LYMPHOCYTES PERCENT AUTO 10.8 % (24.0-44.0); MEAN PLATELET VOLUME 9.8 fl (9.4-12.3); MONOCYTES ABSOLUTE AUTO 0.7 K/mm3 (0.0-0.8); MONOCYTES PERCENT AUTO 5.5 % (0.0-8.0); NEUTROPHILS ABSOLUTE AUTO 9.8 K/mm3 (1.8-7.7); NEUTROPHILS PERCENT AUTO 82.5 % (41.0-71.0); NRBC ABSOLUTE 0.00 (0.00-0.02); NRBC PERCENT 0.0 % (0.0-0.2); PLATELET COUNT,PLT 202 K/mm3 (150-400); RED BLOOD CELL COUNT 4.74 M/mm3 (4.10-5.30); WHITE BLOOD CELL COUNT,WBC 11.89 K/mm3 (3.9-11.3)
[2025-03-02 13:30] LABS: A/G RATIO 0.9 (1-2); ALANINE AMINOTRANSFERASE,ALT 26.0 U/L (14-59); ASPARTATE AMNIOTRANSFERASE,AST 11.0 U/L (15-37); BILIRUBIN TOTAL 0.5 mg/dL (0.2-1.0); BLOOD UREA NITROGEN,BUN 5.0 mg/dL (7-18); CARBON DIOXIDE,CO2 26.0 mEq/L (21-32); CHLORIDE,CL 104.0 mEq/L (98-107); CREATININE 0.9 mg/dL (0.55-1.02); EST CRCL DRUG DOSING (CG) 77.49 mL/min; ESTIMATED GFR 87.0 mL/min (>60); GLUCOSE RANDOM 95.0 mg/dL (70-99); POTASSIUM,K 3.2 mEq/L (3.5-5.1); PROTEIN TOTAL,TP 7.6 g/dl (6.4-8.2); SODIUM,NA 140.0 mEq/L (136-145)
== END 2025-03-02 14:50 | disposition home or self-care (01) ==
LOC: JD.ED 12:01
DX: G43.909 Migraine, unspecified, not intractable, without status migrainosus (principal); Z88.5 Allergy status to narcotic agent; Z88.8 Allergy status to other drugs, medicaments and biological substances; Z79.85 Long-term (current) use of injectable non-insulin antidiabetic drugs
CPT/HCPCS: 36415; 80053; 85025; 86140; 87651; 96361; 96374; 96375; 99283; J0696; J1200; J1885; J2405; J7030